=== PATIENT | female | born 1985 | race Caucasian/White ===

== ENCOUNTER → 2018-07-29 | Outpatient (CLI) | payer BC | LOC: LAB 09:04 | PROVIDERS: ATTEND Physician Assistant | DX: E22.1 Hyperprolactinemia (principal) | CPT/HCPCS: 36415; 84146 ==

== ENCOUNTER → 2018-08-04 | Outpatient (CLI) | payer BC ==
[~2018-08-04] MED LIST: GADOBENATE 529MG/1ML 15ML VIAL IVP ONE; NS(*) 0.9% 50 ML BAG 50 ML ONE
--- NOTE | 2018-08-04 15:02 | RADIOLOGY IMAGING REPORT ---
FACILITY: [facility] [place] PATIENT NAME: Rosio Avelar : 1985 MR: [id number] V: [id number] EXAM DATE: ORDERING PHYSICIAN: FELIX ELLER TECHNOLOGIST: Location: [facility] Patient: Rosio Avelar : 1985 Visit/Account:[id number] Date of Sevice: 08/04/2018 MR BRAIN/BRAIN STEM W/ & W/O CON Comparisons: None. Additional pertinent history: Hyperprolactinemia TECHNIQUE: Multiplanar, multisequence brain MRI was performed with and without gadolinium contrast. Dedicated thin section imaging was performed through the pituitary fossa both in the coronal and sagi ttal plane. CONTRAST: 15 ml of MultiHance. FINDINGS: Sagittal midline structures and craniocervical junction: Negative. Midline shift: None. Ventricles: Negative. Brain parenchyma: Diffusion weighted imaging: Negative. Gradient sequence: Not performed T2 weighted FLAIR images: Negative. Dedicated imaging through the pituitary fossa: Pituitary stalk/optic chiasm: Negative Pituitary gland/pituitary fossa: 5 mm region of hypoenhancement involving the right aspect of the pituitary gland concerning for a small microadenoma. Cavernous sinuses: Negative Skull base flow voids: Negative Extra-axial spaces: Negative. Dural venous sinuses and major arterial flow voids: Negative. Intracranial enhancement: Negative.. Mastoid air cells and paranasal sinuses: Negative. Surrounding soft tissues and orbits: Negative. Impression: 1. Findings highly concerning for a 5 mm microadenoma involving the right aspect of the pituitary gla nd. 2. Remaining portions of the exam are unremarkable. Report Dictated By: Alirio Velarde MD at 08/04/2018 2:49 PM Report E-Signed By: Alirio Velarde MD at 08/04/2018 2:52 PM [id number]
== END ==
LOC: MRI 13:33
PROVIDERS: ATTEND Physician Assistant
DX: E22.1 Hyperprolactinemia (principal)
CPT/HCPCS: 70553; A9577; J7050

== ENCOUNTER → 2018-08-26 | Outpatient (CLI) | payer BC | LOC: LAB 07:55 | PROVIDERS: ATTEND Physician Assistant | DX: D35.2 Benign neoplasm of pituitary gland (principal) | CPT/HCPCS: 36415; 82024; 82533; 83002; 83003; 84146; 84305; 84402; 84403; 84436; 84439; 84443; 84480 ==

== ENCOUNTER → 2018-08-27 | Outpatient (CLI) | payer BC | LOC: LAB 06:47 | PROVIDERS: ATTEND Neurological Surgery | DX: D35.2 Benign neoplasm of pituitary gland (principal) ==

== ENCOUNTER → 2019-02-07 | Outpatient (CLI) | payer BC ==
--- NOTE | 2019-02-07 12:15 | RADIOLOGY IMAGING REPORT ---
FACILITY: [facility] [place] PATIENT NAME: Rosio Avelar : 1985 MR: [id number] V: [id number] EXAM DATE: ORDERING PHYSICIAN: TAMERA CLARKE TECHNOLOGIST: Location: [facility] Patient: Rosio Avelar : 1985 Visit/Account:[id number] Date of Sevice: 02/07/2019 EXAMINATION: MRI brain without IV contrast MRI brain with IV contrast HISTORY: Pituitary microadenoma COMPARISON: 08/04/2018 TECHNIQUE: Multi-planar, multi-sequence brain MRI was performed before and after IV gadolinium. CONTRAST: 13 mL of IV MultiHance FINDINGS: Dedicated pre and postcontrast images of the sella demonstrate a pituitary gland which is within norm al limits in size, signal and enhancement. The pituitary stock is midline and within normal limits. The optic chiasm is intact. Posterior pituitary bright spot noted. The cavernous sinuses are intac t. Brain volume: Normal. Sagittal midline structures: Normal. Ventricles: Normal. Acute ischemic changes: None. Hemorrhage: None. Masses/edema: None. Enhancement: Normal. Garcia-white: Negative. White matter: Normal. Vessels: Normal. Extra-axial: None. Calvarium/scalp: Negative. Skull base: Negative. Visualized sinuses/orbits: Negative. Visualized upper neck: Negative. IMPRESSION: No convincing focal pituitary abnormality concerning for a tumor. Unremarkable MRI of t he brain. Report Dictated By: HAYLEE MART at 02/07/2019 11:44 AM Report E-Signed By: HAYLEE MART at 02/07/2019 12:07 PM WSN:[id number]
== END ==
LOC: MRI 00:51
PROVIDERS: ATTEND Neurological Surgery
DX: D35.2 Benign neoplasm of pituitary gland (principal)
CPT/HCPCS: 70553; A9577; J7050